=== PATIENT | female | born 1985 | race Caucasian/White ===

== ENCOUNTER 2017-07-29 22:03 | Emergency (ER) | payer SELFPAY ==
[~2017-07-29] VITALS: Ht 167.6 cm; Wt 59.0 kg
[2017-07-29 22:15] VITALS: BP 114/75
[2017-07-29] MEDS ORDERED: POLYTRIM OP SOL10 ML OPHTHALM (22:28)
--- NOTE | 2017-07-29 22:29 | Emergency Room Report ---
History of Present Illness General Chief Complaint: Eye Problems Source: Patient Present Illness [facility] This is a 32-year-old female with no past medical history. She presents with left eye swelling and redness. Onset this morning. Does have some discharge coming from it. Itching and watery. No fever chills but no nausea no vomiting. Denies any other complaint. No foreign body. Allergies: Coded Allergies: No Known Allergies (Unverified , 07/29/17) Patient History Past Medical History: see triage record, old chart reviewed Past Surgical History: none Pertinent Family History: none Last Menstrual Period: 07/29/17 Now: No : 0 Para: 0 Immunizations: other Reviewed Nursing Documentation: PMH: Agreed, PSxH: Agreed Nursing Documentation-PMH Past Medical History: No Stated History Review of Systems Eye: Reports: blurred vision, tearing, discharge, Denies: eye pain ENT: Denies: ear pain, nose congestion, throat swelling Respiratory: Denies: cough, shortness of breath Cardiovascular: Denies: chest pain, palpitations Gastrointestinal: Denies: abdominal pain, diarrhea, nausea, vomiting Musculoskeletal: Denies: back pain, joint pain Skin: Denies: rash Neurological: Denies: headache, numbness Endocrine: Denies: increased thirst, increased urine Hematologic/Lymphatic: Denies: easy bruising All Other Systems: negative except mentioned in HPI Physical Exam Vital Signs Date Time Temp Pulse Resp B/P (MAP) Pulse Ox O2 Delivery O2 Flow Rate FiO2 07/29/17 22:09 97.5 87 18 114/75 100 Room Air vitals normal Sp02 EP Interpretation: reviewed, normal General Appearance: well appearing, no apparent distress, alert Head: normocephalic, atraumatic Eyes: left eye other - Left conjunctiva injected. Mild edema., bilateral eye PERRL, bilateral eye EOMI ENT: hearing grossly normal, normal pharynx Neck: full range of motion, supple, no meningismus Respiratory: chest non-tender, lungs clear, normal breath sounds Cardiovascular #1: regular rate, rhythm, no murmur Gastrointestinal: normal bowel sounds, non tender, no mass, no organomegaly, no bruit, non-distended Musculoskeletal: back normal, gait/station normal, normal range of motion Psychiatric: mood/affect normal Skin: warm/dry Medical Decision Making Diagnostic Impression: Primary Impression: Left conjunctivitis Qualified Codes: H10.32 - Unspecified acute conjunctivitis, left eye ER Course Patient presents with a left conjunctivitis. No evidence of orbital cellulitis or septal cellulitis. We'll discharge home. No foreign body. Last Vital Signs Date Time Temp Pulse Resp B/P (MAP) Pulse Ox O2 Delivery O2 Flow Rate FiO2 07/29/17 22:09 97.5 87 18 114/75 100 Room Air Status: improved Disposition: HOME, SELF-CARE Condition: Stable Scripts Polymyxin/Trimethoprim (Polytrim Eye Drops) 10 Ml Drops 2 DROP OPHTHALM THREE TIMES A DAY, #1 EA Instill in affected eye for 7 days Prov: MARK GANNON M.D. 07/29/17 Additional Instructions: Treat both eyes. Do not rub your eyes. Followup with your Dr. in 7 days if not better. Return if worse. MARK GANNON M.D. Jul 29, 2017 22:29
[2017-07-29 22:35] VITALS: BP 114/75
== END 2017-07-29 22:35 | disposition home or self-care (01) ==
LOC: EMR 22:30
DX: H10.9 Unspecified conjunctivitis (principal)
CPT/HCPCS: 99283